=== PATIENT | male | born 1935 | race Two or more races ===

== ENCOUNTER 2017-10-07 16:31 | Emergency (ER) | payer OTHER ==
[~2017-10-07] VITALS: Ht 162.6 cm; Wt 73.5 kg
[~2017-10-07 16:31] MED LIST: CIPRO750 MG PO; CLONAZEPAM1 MG PO; DIOVAN40 MG; DOCUSATE SODIU100 MG PO; IBUPROFEN800 MG PO; METHYLPRED4 MG/DOSE- PO; NEURONTIN PO; ORPH100T PO; PERCOCET 5/3251 TAB PO
== END 2017-10-07 20:18 | disposition home or self-care (01) ==
LOC: ER 16:31
DX: S60.212A Contusion of left wrist, initial encounter (principal); M79.642 Pain in left hand; W18.39XA Other fall on same level, initial encounter; Y93.89 Activity, other specified; Y92.89 Other specified places as the place of occurrence of the external cause; Y99.8 Other external cause status

== ENCOUNTER 2017-11-22 01:08 | Emergency (ER) | payer OTHER ==
[~2017-11-22] VITALS: Ht 167.6 cm; Wt 68.5 kg
[2017-11-22] MEDS ORDERED: PLAVIX75 MG (01:28)
[2017-11-22] MEDS ORDERED: CARDURA1 MG (01:28)
[2017-11-22] MEDS ORDERED: DOLOGESIC 500-1 EACH PO (04:11)
== END 2017-11-22 05:00 | disposition home or self-care (01) ==
LOC: ER 01:08
DX: S50.01XA Contusion of right elbow, initial encounter (principal); S70.11XA Contusion of right thigh, initial encounter; W18.09XA Striking against other object with subsequent fall, initial encounter; Y93.89 Activity, other specified; Y92.59 Other trade areas as the place of occurrence of the external cause; Y99.8 Other external cause status